=== PATIENT | male | born 1965 | race Caucasian/White ===

== ENCOUNTER → 2024-02-18 | Outpatient (CLI) | payer OTHER ==
[2024-02-18 17:22] LABS: BODY FLUID RBC 14467 /cu. mm.; BODY FLUID WBC 0 /cu. mm.
[2024-02-18 17:24] LABS: APPEARANCE BODY FLUID BLOODY (CLEAR); SPECIMENTYPE,BODY FLUID SYNOVIAL; TOTAL VOLUME,BODY FLUID 35 mL
[2024-02-18 17:25] LABS: COLOR,BODY FLUID PINK (LT YELLOW)
[2024-02-19 11:20] LABS: CRYSTALS, SYNOVIAL FLUID None Seen
== END | disposition home or self-care (01) ==
LOC: LAB 15:55
PROVIDERS: ATTEND Nurse Practitioner
DX: M25.461 Effusion, right knee (principal)
CPT/HCPCS: 87071; 87076; 87205; 89051; 89060